=== PATIENT | female | born 1945 | race Caucasian/White ===

== ENCOUNTER 2023-08-31 08:53 | Outpatient (CLI) | payer MEDICARE | END 2023-08-31 08:54 | disposition home or self-care (01) | LOC: CSHULT 08:53 | PROVIDERS: ATTEND Family Medicine | DX: R30.0 Dysuria (principal); R10.9 Unspecified abdominal pain | CPT/HCPCS: 76700 ==

== ENCOUNTER 2024-02-06 09:25 | Observation (INO) | payer OTHER ==
[2024-02-06 10:03] LABS: #Basophils 0.03 10x3/uL (0.0-0.2); #Eosinphils 0.17 10x3/uL (0.0-0.5); #Monocytes 0.52 10x3/uL (0.0-1.1); #Neutrophils 4.37 10x3/uL (1.5-8.4); %Basophils 0.4 % (0.0-2.0); %Eosinophils 2.4 % (0.0-6.0); %Monocytes 7.3 % (0.0-10.0); %Neutrophils 61.6 % (40.0-75.0); Hematocrit 37.7 % (34.9-44.5); Mean Corpuscular HGB CONC 34.5 g/dL (32.0-36.0); Mean Corpuscular Hemoglobin 31.9 pg (27.0-33.0); Mean Corpuscular Volume 92.6 fl (81.6-98.3); Platelet Count 216 10x3/uL (150-450); RBC Distribution Width 14.4 % (11.5-14.5); Red Blood Cell (RBC) Count 4.07 10x6/uL (3.90-5.03); White Blood Cell (WBC) Count 7.1 10x3/uL (3.5-10.5)
[2024-02-06 10:13] LABS: ALT (SGPT) 7 U/L (8-55); AST (SGOT) 20 U/L (5-34); Albumin 3.8 g/dL (3.4-4.8); Alkaline Phosphatase 48 U/L (40-110); Anion Gap 14 mmol/L (10-20); BUN (Urea Nitrogen) 16 mg/dL (9.8-20.1); Bilirubin, Total 0.7 mg/dL (0.2-1.2); Calc. Creatinine Clearance 0 mL/min (70-130); Calcium 9.7 mg/dL (7.8-10.44); Carbon Dioxide 27 mmol/L (23-31); Chloride 99 mmol/L (98-107); Estimated GFR 36; Glucose 114 mg/dL (83-110); Lipase 28 U/L (8-78); Potassium 4.2 mmol/L (3.5-5.1); Protein, Total 6.8 g/dL (5.8-8.1); Sodium 136 mmol/L (136-145)
[2024-02-06 10:16] LABS: Troponin I Less than 0.010 ng/mL (< 0.028)
[2024-02-06 12:52] LABS: Magnesium 1.9 mg/dL (1.6-2.6)
[2024-02-06 14:54] VITALS: BMI 32.3
[2024-02-06] MEDS ORDERED: Bisacodyl 5 MG TAB PO PRN (15:11)
[2024-02-06] MEDS ORDERED: Ondansetron ODT 4 MG TAB PO PRN (15:11)
[2024-02-06] MEDS ORDERED: Senokot S 8.6-50 MG TAB PO PRN (15:11)
[2024-02-06] MEDS ORDERED: Ondansetron PF 4 MG/2 ML Vial IVP PRN (15:11)
[2024-02-06] MEDS ORDERED: Nitroglycerin 0.4 MG TAB (25 Tab Bottle) SL PRN (15:11)
[2024-02-06 16:34] LABS: Troponin I Less than 0.010 ng/mL (< 0.028)
[2024-02-06] MEDS: Polyethylene Glycol 3350 17 GM Packet PO SCH (17:01)
[2024-02-07 04:59] LABS: Anion Gap 16 mmol/L (10-20); BUN (Urea Nitrogen) 15 mg/dL (9.8-20.1); Calc. Creatinine Clearance 43 mL/min (70-130); Carbon Dioxide 26 mmol/L (23-31); Chloride 100 mmol/L (98-107); Estimated GFR 35; Glucose 95 mg/dL (83-110); Potassium 3.5 mmol/L (3.5-5.1); Sodium 138 mmol/L (136-145)
[2024-02-07 05:00] LABS: Calcium 9.8 mg/dL (7.6-10.4); Cardiac Risk 10.8 (Less than 4.5); Cholesterol 498 mg/dL (< 200 Desired); HDL Cholesterol 46 mg/dL (>60 Neg Risk); LDL Cholesterol, Calculated 414 mg/dL; Triglycerides 192 mg/dL (Less than 150)
[2024-02-07 05:35] LABS: Hematocrit 37.9 % (34.9-44.5); Hemoglobin 13.1 g/dL (12.0-15.5); Mean Corpuscular HGB CONC 34.6 g/dL (32.0-36.0); Mean Corpuscular Hemoglobin 31.6 pg (27.0-33.0); Mean Corpuscular Volume 91.3 fl (81.6-98.3); Mean Platelet Volume 10.6 fl (7.4-10.4); Platelet Count 216 10x3/uL (130-400); RBC Distribution Width 14.5 % (11.5-14.5); Red Blood Cell (RBC) Count 4.15 10x6/uL (3.90-5.03); White Blood Cell (WBC) Count 7.3 10x3/uL (3.5-10.5)
[2024-02-07 05:36] LABS: #Basophils 0.04 10x3/uL (0.0-0.2); #Eosinphils 0.22 10x3/uL (0.0-0.5); #Monocytes 0.56 10x3/uL (0.0-1.1); #Neutrophils 4.51 10x3/uL (1.5-8.4); %Basophils 0.5 % (0.0-2.0); %Lymphocytes 26.5 % (18.0-47.0); %Monocytes 7.7 % (0.0-10.0)
[2024-02-07] MEDS ORDERED: Levothyroxine 150 MCG TAB PO SCH (06:00)
[2024-02-07] MEDS: Levothyroxine Sodium 100 MCG TAB PO SCH (06:32)
[2024-02-07] MEDS: Levothyroxine Sodium 50 MCG TAB PO SCH (06:32)
[2024-02-07 08:20] LABS: Free T4 (Free Thyroxine) Less than 0.40 ng/dL (0.70-1.48)
[2024-02-07] MEDS: Acetaminophen 325 MG TAB PO PRN (09:47)
[2024-02-07] MEDS: NIFEdipine XL 60 MG ER.TAB PO SCH (09:47)
[2024-02-07] MEDS: Aspirin 325 MG TAB PO SCH (09:47)
[2024-02-07 12:08] VITALS: TEMP 98
[2024-02-07 14:22] VITALS: BP 142/84
[2024-02-07] MEDS ORDERED: Atorvastatin Calcium 40 MG TAB PO SCH (21:00)
== END 2024-02-07 14:58 | disposition home or self-care (01) ==
LOC: CSHERS 09:25 → CSHTELE 13:49
PROVIDERS: ADMIT Family Medicine; ATTEND Family Medicine
PROC: B246ZZZ Ultrasonography of Right and Left Heart (ICD-10-PCS; principal; 2024-02-06)
DX: R07.9 Chest pain, unspecified (principal); I12.9 Hypertensive chronic kidney disease with stage 1 through stage 4 chronic kidney disease, or unspecified chronic kidney disease; N18.9 Chronic kidney disease, unspecified; E78.5 Hyperlipidemia, unspecified; K59.00 Constipation, unspecified; E89.0 Postprocedural hypothyroidism; Z90.89 Acquired absence of other organs; Z79.890 Hormone replacement therapy; Z79.899 Other long term (current) drug therapy; Z90.49 Acquired absence of other specified parts of digestive tract; Z98.890 Other specified postprocedural states; Z79.82 Long term (current) use of aspirin
CPT/HCPCS: 71045; 80048; 80053; 80061; 83690; 83735; 84439; 84443; 84481; 84484 ×2; 85025 ×2; 93005; 93306; 99285; G0378 ×3; 36415